=== PATIENT | male | born 1995 | race Caucasian/White ===

== ENCOUNTER 2022-11-27 15:30 | Emergency (ER) | payer BC, OTHER, SELFPAY ==
[2022-11-27 15:32] VITALS: BP 150/88; PULSE 90; RESP 18; TEMP 36.6; O2SAT 96; BMI 29.5
--- NOTE | 2022-11-27 15:46 | XR_ITS ---
FINAL REPORT CLINICAL HISTORY: smashed in car door, RT HAND PAIN AND SWELLING COMPARISON: None FINDINGS: RIGHT HAND: 3 views of the right hand were obtained. There is a chronic fracture of the fifth metacarpal. There is an acute fracture of the second metacarpal. Fracture line does not extend to the joint.. Visualized joint spaces are normally aligned. There is dorsal hand soft tissue swelling. IMPRESSION: Acute fracture second metacarpal with dorsal hand soft tissue swelling. Chronic fracture fifth metacarpal. Reviewed, Interpreted and Dictated by Reilly Birmingham III, MD Transcribed by Virgie Greenwood Authenticated and [facility]
--- NOTE | 2022-11-27 15:50 | EXP.UTC ---
Discharge Plan Disposition Patient Disposition: Home, Self-Care Condition: Good Prescriptions Prescriptions: New ibuprofen [IBU] 800 mg tablet 800 mg PO Q8HP PRN (Reason: Moderate Pain) Qty: 30 0RF Referrals Follow up/Referrals: Ike Medel DO [Staff Physician] - See instructions Radha Bautista DO [Primary Care Provider] - See instructions Activity Restrictions/Add. Instructions Additional Instructions/Restrictions: Rest the extremity, apply ice for 15 minutes as tolerated three or four times per day, Elevate the extremity as tolerated while you are resting. Take ibuprofen for pain. I sent in a prescription to your pharmacy for ibuprofen 800 mg, but you could just take over the counter ibuprofen. Follow up with Dr. Medel (orthopedics). I put in a referral but you need to call his office in the morning to schedule an appointment. Follow up with your regular doctor. GO TO THE ER FOR ANY WORSENING SYMPTOMS Clinical Impressions Clinical Impression: Fracture of second metacarpal bone of right hand Stand Alone Forms Stand Alone Forms: Work/School Release Instructions Patient Instructions: DI for a Hand Fracture, Hand Fracture Discharge ED Provider: Adan [place] [facility] [place] General Stated complaint: [id number] RT hand inj Mode of Arrival: Ambulatory Source of Information: Patient Limitations: No Limitations Time Seen by Provider: 11/27/22 15:49 HEENT Symptoms (Recalled from RN notes): No Resp Symptoms (Recalled from RN notes): No Skin Symptoms (Recalled from RN notes): No MS Symptoms (Recalled from RN notes): Yes Functional Status (Recalled from RN notes): wnl History of Present Illness Provider Complaint: Patient reports shutting his right hand in a car door today. He is having right hand pain near the base of his index finger. Related Data Previous Rx's Medication Instructions Recorded ibuprofen 800 mg tablet (IBU) 800 mg PO Q8HP PRN Moderate Pain 11/27/22 #30 tabs Allergies Allergy/AdvReac Type Severity Reaction Status Date / Time erythromycin base Allergy Verified 11/27/22 15:50 Worker's Comp Is this a Worker's Comp case?: No [facility] Disclaimer: The information contained in this section may have been updated after the patient was seen, as this information can be updated by other users. Social History Smoking Status: Never smoker alcohol intake: never current occupational status: employed Travel in the last 8 weeks: None ROS Obtained: Yes All systems reviewed & no additional complaints except as documented Constitutional Constitutional: Denies chills and Denies fever(s) Eyes Eyes: Denies eye discharge ENT Ears, Nose, Mouth, and Throat: Denies dizziness, Denies otalgia and Denies sore throat Cardiovascular Cardiovascular: Denies chest pain Respiratory Respiratory: Denies shortness of breath, Denies chest congestion, Denies cough, Denies stridor and Denies wheezing Gastrointestinal Gastrointestingal: Denies nausea or vomiting Musculoskeletal Musculoskeletal: Reports as per HPI Integumentary/Breasts Skin/Breast: Denies rash Neurologic Neurologic: Denies dizziness and Denies paresthesias Allergic/Immunologic Allergic/Immunologic: Denies wheezing Physical Exam General General appearance: alert and in no apparent distress Head Head exam: atraumatic, normocephalic and normal inspection Eye Eye exam: Present normal appearance, PERRL and EOMI ENT ENT exam: Present normal exam, normal oropharynx, mucous membranes moist, TM's normal bilaterally and normal external ear exam Neck Neck exam: Present normal inspection, full ROM and trachea midline; Absent meningismus or lymphadenopathy Chest Chest inspection: Present normal inspection and symmetric chest wall rise; Absent tenderness Respiratory Respiratory exam: Present normal lung sounds bilaterally; Absent respiratory distress Cardiovascular Cardiovascular exam: Present regular rate and normal rhythm;
[2022-11-27 17:38] VITALS: BP 150/88; PULSE 90; RESP 18; TEMP 36.6; O2SAT 96
== END 2022-11-27 17:38 | disposition home or self-care (01) ==
PROVIDERS: Emergency Provider Nurse Practitioner Family; PCP Family Medicine
DX: S62.300A Unspecified fracture of second metacarpal bone, right hand, initial encounter for closed fracture (principal); W23.0XXA Caught, crushed, jammed, or pinched between moving objects, initial encounter
CPT/HCPCS: 73130; 99204; 99212; G0463

== ENCOUNTER → 2022-12-06 12:19 | Outpatient (CLI) | payer OTHER, SELFPAY ==
--- NOTE | 2022-12-17 02:23 | PC.NURSE ---
chart accessed for demographics for ortho papers
== END ==
PROVIDERS: PCP Family Medicine; Visit Provider Orthopaedic Surgery
DX: S62.300A Unspecified fracture of second metacarpal bone, right hand, initial encounter for closed fracture (principal)

== ENCOUNTER → 2023-01-07 14:37 | Outpatient (CLI) | payer BC, OTHER, SELFPAY ==
--- NOTE | 2023-01-07 14:45 | XR_ITS ---
FINAL REPORT CLINICAL HISTORY: right hand fx FINDINGS: AP, lateral and oblique views of the right hand were obtained. There is no prior exam for comparison. There is a nondisplaced fracture of the second metacarpal. Fracture does not extend into the either joint. The joint spaces are preserved. The soft tissues are normal. IMPRESSION: Nondisplaced second metacarpal fracture. Reviewed, Interpreted and Dictated by Shante Stephens MD Transcribed by Leo Cohen Authenticated and [facility]
== END ==
PROVIDERS: PCP Family Medicine; Visit Provider Orthopaedic Surgery
DX: S62.300A Unspecified fracture of second metacarpal bone, right hand, initial encounter for closed fracture (principal); Y99.9 Unspecified external cause status
CPT/HCPCS: 73130